=== PATIENT | male | born 1975 | race Caucasian/White ===

== ENCOUNTER 2018-02-09 06:07 | Day surgery (SDC) | payer OTHER ==
[~2018-02-09] VITALS: Ht 175.3 cm; Wt 127.0 kg
[2018-02-09 06:49] LABS: BASOPHILS # (AUTO) 0.1 K/uL (0.00-0.22); BASOPHILS % (AUTO) 0.6 % (0.0-2.0); EOSINOPHILS # (AUTO) 0.2 K/uL (0-0.4); EOSINOPHILS % (AUTO) 2.5 % (0.0-4.0); HEMATOCRIT 46.7 % (36-52); HEMOGLOBIN 16.1 g/dL (12.0-18.0); LYMPHOCYTES # (AUTO) 2.5 K/uL (2.0-11.5); LYMPHOCYTES % (AUTO) 28.5 % (20.5-51.1); MEAN CORPUSCULAR HEMOGLOBIN 29 pg (27-31); MEAN CORPUSCULAR HGB CONC 34 g/dL (33-37); MEAN CORPUSCULAR VOLUME 84.2 fL (80-94); MONOCYTES # (AUTO) 0.6 K/uL (0.8-1.0); MONOCYTES % (AUTO) 6.9 % (1.7-9.3); NEUTROPHILS # (AUTO) 5.3 K/uL (1.8-7.7); NEUTROPHILS % (AUTO) 61.5 % (42.2-75.2); PLATELET COUNT (AUTO) 309 K/uL (140-450); RED BLOOD CELL COUNT(AUTO) 5.54 MIL/uL (4.20-6.10); RED CELL DISTRIBUTION WIDTH 13.7 % (11.6-13.7); WHITE BLOOD COUNT (AUTO) 8.6 K/uL (4.8-10.8)
[2018-02-09 07:05] LABS: ANION GAP 10.6 (8-16); CARBON DIOXIDE 27.1 mmol/L (21-32); POTASSIUM 3.7 mmol/L (3.5-5.1)
[2018-02-09 07:11] LABS: ALBUMIN 3.4 g/dL (3.4-5.0); TOTAL BILIRUBIN 0.3 mg/dL (0.0-1.0)
[2018-02-09] MEDS ORDERED: PROPOFOL 200 MG/20 ML VIAL IV ONE (07:28)
[2018-02-09] MEDS ORDERED: ONDANSETRON 4 MG/2 ML VIAL IVP PRN (08:05)
[2018-02-09] MEDS ORDERED: HYDROmorphone 1 MG/ML AMP IVP PRN (08:05)
[2018-02-09] MEDS ORDERED: OMEP20TC12 PO (08:37)
[2018-02-09] MEDS ORDERED: BENZ-196 PO (08:37)
[2018-02-09] MEDS ORDERED: LORA10TA19 PO (08:37)
[2018-02-09] MEDS ORDERED: GUAI-791 PO (08:37)
[2018-02-09] MEDS ORDERED: FAMO-90 PO (08:37)
[2018-02-09] MEDS ORDERED: PRON INH (08:37)
[2018-02-09] MEDS ORDERED: IBUP200S18 PO (08:37)
== END 2018-02-09 09:35 | disposition home or self-care (01) ==
LOC: MDS 06:07 → MMU 06:12 → MDS 09:35
PROVIDERS: ATTEND Internal Medicine Gastroenterology
DX: K21.9 Gastro-esophageal reflux disease without esophagitis (principal); E66.01 Morbid (severe) obesity due to excess calories; E11.22 Type 2 diabetes mellitus with diabetic chronic kidney disease; I12.9 Hypertensive chronic kidney disease with stage 1 through stage 4 chronic kidney disease, or unspecified chronic kidney disease; N18.9 Chronic kidney disease, unspecified; F03.90 Unspecified dementia, unspecified severity, without behavioral disturbance, psychotic disturbance, mood disturbance, and anxiety; G47.33 Obstructive sleep apnea (adult) (pediatric); G40.909 Epilepsy, unspecified, not intractable, without status epilepticus; Z98.890 Other specified postprocedural states; Z79.899 Other long term (current) drug therapy; Z68.41 Body mass index [BMI] 40.0-44.9, adult
CPT/HCPCS: 36415; 43239; 71045; 80053; 85025; 86677; 88305; 93005; J2704; J7030; J7120; Q0092